=== PATIENT | female | born 1985 | race Hispanic/Latino ===

== ENCOUNTER 2017-10-29 11:29 | Emergency (ER) | payer MEDICAID, OTHER ==
[~2017-10-29 11:29] MED LIST: IBUP-2077 PO; IRON-10 PO; PREN1TAB80 PO
[2017-10-29] MEDS ORDERED: ONDANSETRON ODT 4 MG TAB ONE (12:17)
== END 2017-10-29 12:34 | disposition home or self-care (01) ==
LOC: EDH 11:29
DX: S06.0X9A Concussion with loss of consciousness of unspecified duration, initial encounter (principal); Z72.0 Tobacco use; Z88.0 Allergy status to penicillin; W18.39XA Other fall on same level, initial encounter; Y93.89 Activity, other specified; Y92.89 Other specified places as the place of occurrence of the external cause; Y99.8 Other external cause status
CPT/HCPCS: 70450

== ENCOUNTER 2021-11-07 14:53 | Emergency (ER) | payer OTHER ==
[~2021-11-07] VITALS: Ht 162.6 cm; Wt 61.2 kg
[2021-11-07] MEDS ORDERED: 0.9%NACL 1000ML 1,000 ML IV SCH ×2 (15:30→16:30)
[2021-11-07] MEDS ORDERED: ACETAMINOPHEN 500 MG TABLET PO ONE (15:30)
[2021-11-07 15:38] LABS: BASOPHILS % (AUTO) 0.3 % (0.0-5.0); EOSINOPHILS % (AUTO) 0.1 % (0.0-8.0); HEMATOCRIT 39.3 % (36-48); MEAN CORPUSCULAR HEMOGLOBIN 30.8 pg (27.0-33.0); MEAN CORPUSCULAR HGB CONC 32.3 g/dL (32.0-36.0); MEAN CORPUSCULAR VOLUME 95.4 fL (79-99); MONOCYTES % (AUTO) 8.7 % (3.0-13.0); NEUTROPHILS % (AUTO) 82.3 % (40.0-77.0); PLATELET COUNT (AUTO) 183 K/uL (130-400); RED BLOOD CELL COUNT(AUTO) 4.12 MIL/uL (4.00-5.50); WHITE BLOOD COUNT (AUTO) 15.6 K/uL (4.8-10.8)
[2021-11-07 16:02] LABS: CREATININE 0.9 mg/dL (0.5-1.5); POTASSIUM 3.3 mmol/L (3.5-5.1)
[2021-11-07 16:07] LABS: ALBUMIN 2.8 g/dL (3.5-5.0); BILIRUBIN,TOTAL 0.4 mg/dL (0.2-1.0); TOTAL PROTEIN, SERUM 7.8 g/dL (6.0-8.3)
[2021-11-07] MEDS ORDERED: POTASSIUM BICARB/CIT AC 25 MEQ TABLET.EFF PO ONE (16:30)
[2021-11-07 16:46] VITALS: BP 100/49
[2021-11-07] MEDS ORDERED: POTASSIUM BICARB/CIT AC 25 MEQ TABLET.EFF ONE (17:32)
[2021-11-07] MEDS ORDERED: D-ME1POW16 PO (17:38)
[2021-11-07] MEDS ORDERED: ONDA4TAB10 PO (17:38)
== END 2021-11-07 18:06 | disposition home or self-care (01) ==
LOC: EDH 14:53
DX: J06.9 Acute upper respiratory infection, unspecified (principal); E86.0 Dehydration; Z20.822 Contact with and (suspected) exposure to COVID-19; Z88.0 Allergy status to penicillin; Z79.1 Long term (current) use of non-steroidal anti-inflammatories (NSAID)
CPT/HCPCS: 36415; 71045; 80053; 83605; 85025; 87635; 87804 ×2; 87880; 96360; 96361; 99284; C9803; J7030